=== PATIENT | female | born 1940 | race Caucasian/White ===

== ENCOUNTER 2016-08-25 15:04 | Emergency (ER) | payer MEDICARE ==
--- NOTE | ~2016-08-25 | EKG ---
PATIENT: LIZA RICHTER UNIT #: [id number] Ventricular Rate: 96 BPM Atrial Rate: 94 BPM P-R Interval: 150 ms QRS Duration: 92 ms Q-T Interval: 366 ms QTC Calculation(Bezet): 462 ms P [place]: 50 degrees Calculated R [place]: 27 degrees Calculated T [place]: 0 degrees Diagnosis Line: Normal sinus rhythm Diagnosis Line: Non Specific ST Changes- Abnormality in inferior Diagnosis Line: and lateral leads Diagnosis Line: Abnormal ECG Diagnosis Line: When compared with ECG of 16-AUG-2016 14:35, Diagnosis Line: Vent. rate has increased BY 39 BPM Diagnosis Line: Inferior leads Diagnosis Line: Nonspecific T wave abnormality, worse in Lateral Diagnosis Line: leads Diagnosis Line: Confirmed by REFUGIO VELEZ, ALICIA ([id number]) on Diagnosis Line: 09/06/2016 11:04:54 AM INTERPRETING MD: NIRANJAN
[~2016-08-25 15:04] MED LIST: AGGRENOX PO; ALBUTEROL AEROSOL IH; ALBUTEROL17 GM; ALBUTEROL17 GM INH; ALPRAZOLAM; ALPRAZOLAM PO; ANTIVERT PO; ASPIRIN ENTERI325 M1 PO; ASPIRIN325 M1 PO; CLOPIDOGREL75 MG PO; COUMADIN7.5 MG; DESYREL150 M1 PO; ECOTRIN325 MG PO; FLONASE16 GM; HYDROCODON-ACE1 EAC9 PO; IMODIUM2 MG PO; KEPPRA500 MG; LORTAB 7.5-5001 TAB PO; LORTAB 7.51 TAB PO; LORTAB PO; MELATONIN1 MG PO; MOBIC; MUCINEX DM ER1 EACH; NEXIUM PO; PERCOCET5/325 PO; PLAVIX PO; PLAVIX300 MG; PLAVIX300 MG PO; POTASSIUM99 M2 PO; RELAFEN500 MG PO; SINGULAIR PO; SKELAXIN PO; TOPROL XL PO; TOPROL XL50 MG PO; TRAZODONE HCL150 MG PO; TRAZODONE PO; TRICOR PO; TYLOX 5/500 CAP1 CAP PO; XANAX0.5 M1 PO; XANAX0.5 MG PO; XANAX1 MG PO; XANAX2 MG PO; ZETIA PO; ZITHROMAX PO; ZOCOR5 MG; ZOFRAN PO; ZOLOFT; ZOLOFT PO; ZOLOFT100 MG PO; ZYRTEC PO; ZYRTEC10 M2
[2016-08-25 16:03] LABS: URINE SOURCE CLEAN CATCH
[2016-08-25 16:06] LABS: URINE APPEARANCE CLEAR; URINE BILIRUBIN NEG (NEG); URINE BLOOD 2+ (NEG); URINE COLOR YELLOW; URINE GLUCOSE NEG (NORM); URINE KETONE NEG (NEG); URINE LEUKOCYTE ESTERASE TRACE (NEG); URINE NITRATE NEG (NEG); URINE PROTEIN NEG (NEG); URINE SPECIFIC GRAVITY >=1.030 (1.003-1.035); URINE UROBILINOGEN 0.2 MG/DL (NORM)
[2016-08-25 16:11] LABS: MICRO INDICATED? YES
[2016-08-25 16:13] LABS: URINE BACTERIA NEG (NEG); URINE SQUAMOUS EPITHELIAL CELL FEW /[HPF]
[2016-08-25 16:16] LABS: AMPHETAMINE NEG (NEG); BARBITURATES NEG (NEG); BENZODIAZEPINES NEG (NEG); COCAINE NEG (NEG); MARIJUANA NEG (NEG); OPIATES NEG (NEG); TRICYCLIC ANTIDEPRESSANTS NEG (NEG); U METHADONE NEG (NEG)
[2016-08-25 16:48] LABS: BASOPHIL% 0.2 % (0-2.5); EOSINOPHIL% 0.2 % (0.0-7.0); HEMATOCRIT 39.7 % (35.0-45.0); LYMPHOCYTE# 0.3 X10e3 (1.0-3.5); LYMPHOCYTE% 4.7 % (17.0-45.0); MEAN CELL VOLUME 86.1 FL (83-96); MEAN CORPUSCULAR HEMOGLOBIN 28.3 PG (28-34); MEAN CORPUSCULAR HGB CONC 32.8 g/dL (30-36); MONOCYTE# 0.1 X10e3 (0-1.0); MONOCYTE% 2.3 % (3.0-12.0); NEUTROPHIL% 92.6 % (40-75); PLATELET COUNT 227 X10e3 (140-420); RED BLOOD COUNT 4.62 X10e (3.90-5.30); RED CELL DISTRIBUTION WIDTH 14.7 % (11.0-15.5); WHITE BLOOD COUNT 6.4 X10e3 (4.0-10.5)
[2016-08-25 16:54] LABS: DIFF IND NO
[2016-08-25 17:14] LABS: BLOOD UREA NITROGEN 10 mg/dL (9-23); BUN/CREATININE RATIO 16.66; CALCIUM SERUM 8.8 mg/dL (8.4-10.2); CARBON DIOXIDE 24 mmol/L (22-31); CHLORIDE 98 mmol/L (100-111); CREATININE SERUM 0.6 mg/dL (0.6-1.4); GLOM FILT RATE Estimated ABOVE60 mL/min (>60); GLUCOSE FASTING 109 mg/dL (70-110); POTASSIUM 4.4 mmol/L (3.5-5.1); SODIUM 131 mmol/L (135-145)
== END 2016-08-25 18:22 | disposition home or self-care (01) ==
LOC: SED 15:04
PROVIDERS: Emergency Medicine
DX: R42 Dizziness and giddiness (principal); N39.0 Urinary tract infection, site not specified; Z86.73 Personal history of transient ischemic attack (TIA), and cerebral infarction without residual deficits; Z88.8 Allergy status to other drugs, medicaments and biological substances
CPT/HCPCS: 36415; 80048; 80307; 81003; 82947; 85025; 93005; 96372; 99284; J1885

== ENCOUNTER 2016-12-08 12:21 | Observation (INO) | payer MEDICARE ==
--- NOTE | ~2016-12-08 | MR134 ---
[facility] A Service of [facility] RADIOLOGY TEXT RESULTS PATIENT: LIZA RICHTER LOCATION: [facility] 317-01 : 41 UNIT #: [id number] AGE: [address]: Julio Delacruz MD SEX: F ORDER DR: [id number] [facility] [address] [place], [place] [address] [id number] I MR#: [id number] Acc #: [id number] NAME: LIZA RICHTER. : 1940 SEX: F STUDY DATE/TIME: 12/08/2016 17:04 UNIT: [address] ROOM: [employer] STUDY DESCRIPTION: MR MRA Neck Wo Contrast Attending Physician: Isabel Harrell M.D. Ordering Physician: Roge Zuñiga M.D. Primary Care Physician: Khari Whitten M.D. MRI CENTER REPORT This report is preliminary unless electronic signature is present. EXAM MRA neck 12/08 INDICATIONS Vertigo and nausea for the last 4 days. Syncopal episode as well. TECHNIQUE 2-D and 3-D odmu-zx-zwaewj imaging was obtained through the neck without contrast. MIP reconstructions of the arterial system were obtained. No comparison. FINDINGS Exam is motion degraded. The left vertebral artery is dominant, but both are patent. Allowing for extensive motion, no significant stenosis is seen within the vertebral arteries or the common carotid or internal carotid arteries on either side of the neck. IMPRESSION Motion degraded exam. No convincing evidence of significant carotid vertebral stenosis within the neck. The left vertebral is dominant but both are patent. Dictated by... Karthik Conway Jr., M.D. THIS IS AN ELECTRONICALLY VERIFIED REPORT Karthik Conway Jr., M.D. at 12/09/2016 10:04 AM JESSICA/andreina TD: 12/09/2016 08:20 JOB #: [id number] [facility] A Service [facility] RADIOLOGY TEXT RESULTS PATIENT: LIZA RICHTER LOCATION: [facility] 317-01 : 41 UNIT #: [id number] AGE: [address]: Julio Delacruz MD SEX: F ORDER DR: MRI CENTER REPORT Page 1 of 1 COPY
--- NOTE | ~2016-12-08 | MR122 ---
[facility] A Service of [facility] RADIOLOGY TEXT RESULTS PATIENT: LIZA RICHTER LOCATION: [facility] 317-01 : 41 UNIT #: [id number] AGE: [address]: Julio Delacruz MD SEX: F ORDER DR: [id number] [facility] [address] [place], [place] [address] [id number] I MR#: [id number] Acc #: [id number] NAME: LIZA RICHTER : 1940 SEX: F STUDY DATE/TIME: 12/08/2016 17:04 UNIT: [address] ROOM: [facility] STUDY DESCRIPTION: MR MRA Head Wo Contrast Attending Physician: Isabel Harrell M.D. Ordering Physician: Roge Zuñiga M.D. Primary Care Physician: Khari Whitten M.D. MRI CENTER REPORT This report is preliminary unless electronic signature is present. EXAM Intracranial MR angiogram HISTORY Dizziness with syncope and nausea beginning 12/05/2016 TECHNIQUE MR angiographic imaging was performed from the skull base to the [place] of [place] FINDINGS Posterior circulation: The distal left vertebral is more dominant than the right. There is diffuse atherosclerotic narrowing of the right vertebral artery with a maximum stenosis of approximately 75% to 80% 1.5 cm below the basilar artery. The basilar artery itself is widely patent. The right posterior cerebral artery is nonvisualized and presumably occluded. There is severe multisegment disease in the proximal posterior cerebral artery on the left. Maximum stenosis in the left P1 segment is greater than 75%. Right carotid circulation: The distal right internal carotid up through the siphon is widely patent through the M1, A1 segments. In the middle cerebral artery distribution there is moderate small vessel disease diffusely. No major branch vessel occlusion is seen. In the anterior circulation there is severe disease of the right anterior cerebral artery in the A2 segment. Both anterior cerebral arteries fill from the right. The left anterior cerebral artery shows a severe focal stenosis near the genu of the corpus callosum. Left carotid circulation: There is a generalized narrowing presumably from atherosclerotic disease involving the distal left internal carotid STS[facility] A Service of [facility] & [facility] RADIOLOGY TEXT RESULTS PATIENT: LIZA RICHTER LOCATION: [facility] 317-01 : 41 UNIT #: [id number] AGE: [address]: Julio Delacruz MD SEX: F ORDER DR: artery beginning at the afferent limb of the carotid siphon extending through the siphon. Maximum stenosis is in the range of 60% to 70%. The A1 segment is either hypoplastic, congenitally absent or chronically occluded. The M1 segment on the left shows severe atherosclerotic disease with multiple severe stenoses of greater than 75% to 80%. There appears to be occlusion of most of the branches at the left MCA trifurcation with probable collateral filling. IMPRESSION 1. In the posterior circulation there is a severe stenosis of the distal right vertebral with the left vertebral being dominant. 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 2. In the carotid circulation on the right side there is wide patency of the A1 segment with both anterior cerebral arteries filling from the right. There is severe disease in both anterior cerebral arteries as described above and moderate diffuse disease of the middle cerebral artery. 2. In the left carotid circulation there is severe disease up through the siphon and into the M1 segment all the way to the middle cerebral artery trifurcation where multiple Sylvian fissure branch vessels are occluded. The A1 segment on the left is either occluded, hypoplastic or congenitally absent. Dictated by... Karthik Fields M.D. THIS IS AN ELECTRONICALLY VERIFIED REPORT Karthik Fields M.D. at 12/09/2016 4:09 PM FALGUNI/andreina TD: 12/09/2016 07:40 JOB #: [id number] MRI CENTER REPORT Page 1 of 1 COPY
--- NOTE | ~2016-12-08 | CT17 ---
[facility] A Service of [facility] & [facility] RADIOLOGY TEXT RESULTS PATIENT: LIZA RICHTER LOCATION: [facility] 317- : 41 UNIT #: [id number] AGE: [address]: Julio Delacruz MD SEX: F ORDER DR: [id number] [facility] [address] [place], [place] [address] [id number] I MR#: [id number] Acc #: [id number] NAME: LIZA RICHTER. : 1940 SEX: F STUDY DATE/TIME: 12/09/2016 19:18 UNIT: [address] ROOM: [facility] STUDY DESCRIPTION: CT Angio Head Attending Physician: Julio Delacruz M.D. Ordering Physician: Julio Delacruz M.D. Primary Care Physician: Khari Whitten M.D. MEDICAL IMAGING REPORT This report is preliminary unless electronic signature is present EXAM CT angiogram of the head and neck with contrast, dated 12/09/16. COMPARISON MR angiogram head and neck dated 12/08/16. HISTORY Dizziness, nausea, vomiting since 12/05/16. Syncope. TECHNIQUE This CT exam was performed with one or more of the following radiation dose reduction techniques: automatic exposure control, adjustment of mA and/or kV according to patient size, and iterative reconstruction. FINDINGS CT angiogram of the head and neck was obtained with IV contrast in the axial plane. Curved reformats of the neck arteries were obtained. The [place] was reconstructed in all 3 planes along with tumbling MIP images. NECK: Aortic atherosclerotic vascular calcifications are present. Two-vessel aortic arch is seen with common origin of the left common carotid artery with the innominate artery. Atherosclerotic plaques are noted along the course of bilateral common carotid arteries. The left common carotid artery is slightly smaller when compared to the right along its course. Atherosclerotic plaques extend from bilateral distal common carotid arteries into the origins of the left external carotid artery and right internal carotid artery. There is about 40 to 50% focal short segmental stenosis of the right internal carotid artery bulb at its origin involving a tiny segment. It is based on NASCET criteria. No significant stenosis is seen. The left internal carotid artery does not demonstrate any measurable stenosis. There appears to be mild stenosis of the origins of bilateral external carotid arteries with atherosclerotic plaque, STS. [facility] A Service of [facility] & [facility] RADIOLOGY TEXT RESULTS PATIENT: LIZA RICHTER LOCATION: [facility] 317-01 : 41 UNIT #: [id number] AGE: [address]: Julio Delacruz MD SEX: F ORDER DR: particularly in the right. Bilateral vertebral arteries demonstrate expected course and flow. The left vertebral artery slightly dominant. No significant stenosis or dissection is seen. HEAD: The left internal carotid artery demonstrates a decrease in caliber of the distal cervical left ICA extending into the petrous intracranial segment. In a focal short segment at the junction of cervical and petrous portion at the skull base, there is about ruvervba-yv-qqikux stenosis. There is severe focal 2-3 mm short segment of stenosis in the left supraclinoid ICA, proximal to the carotid terminus. Mild narrowing is also seen in the petrous left ICA, extending distally to the supraclinoid portion. Scattered atherosclerotic plaques are noted with decreased caliber of the vessel. Atherosclerotic plaques are noted along the course of the right ICA, also with likely mild stenosis of the right cavernous and maybe portions of the adjacent right supraclinoid ICA. Small infundibula arise from the posterior aspect of bilateral supraclinoid ICA measuring about 2 mm in height and 2 mm at the neck. Its at the expected region of the origins of bilateral PCOMs. the PCOM itself are not well seen. A1 segment of the left anterior cerebral artery is not seen. It is very hypoplastic to aplastic. PCOM likely cross-fills from the right CUATE to the left A2. There is focal short segment of dgolettv-rl-rdkoqk stenosis of the M1 segment of the left MCA. There is no significant distal flow limitation. The right middle cerebral artery, right anterior cerebral artery are unremarkable. Basilar arteries within normal limits. There is irregularity of the left posterior cerebral artery involving its P1 and probably a short segment of the junction of P2 and P3. Tandem multiple short segments of lozbqsqg-kq-opmgdh stenosis are noted along the course of the left posterior cerebral artery involving P1-P3, with relatively normal-appearing P4 segment. No significant distal flow limitation is seen. The right posterior cerebral artery is not well seen particularly in the right P1 and P2 segments extending towards the presumed P3 segment. A small vessel cannot be completely excluded. There appears to be relatively prominent right P3 segment when compared with the left [employer]. It could also represent a vein in this region. There are no old studies available for comparison. Basilar artery is grossly unremarkable. Atherosclerotic plaques are noted in the mid V4 segment of the vertebral artery. The right vertebral artery is of smaller caliber and it has atherosclerotic plaques as it extends intracranially likely causing mild stenosis. The caliber of the right vertebral artery keeps decreasing as it extends towards the vertebrobasilar junction. It is more pronounced after the takeoff of the right PICA. No obvious aneurysm or AVM is seen. Dural venous sinuses do not demonstrate any complete occlusion to suggest acute thrombosis. EXTRAVASCULAR SOFT TISSUES: No hydrocephalus or midline shift. No enhancing solid parenchymal mass is seen. There is encephalomalacic change along the right posterior cerebral artery distribution in the posterior medial right occipital lobe and in the left inferior parietal cortex and adjacent subcortical white matter extending superiorly. It is STS. [facility] A Service of [facility] RADIOLOGY TEXT RESULTS PATIENT: LIZA RICHTER [id number] UNIT #: [id number] AGE: [address]: Julio Delacruz MD SEX: F ORDER DR: likely in the distribution of left middle cerebral artery. Refer to MRI brain obtained from the same day. IMPRESSION 1. Refer to MRA of head and neck from yesterday. Refer to the CT of head and neck from 08/11/12, which demonstrates similar findings. 2. There is severe focal 2-3 mm short segment of stenosis in the left supraclinoid ICA, proximal to the carotid terminus. 3. Tandem multiple short segments of hugjifzr-ei-darvej stenosis are noted along the course of the left posterior cerebral artery involving P1-P3, with relatively normal-appearing P4 segment. 4. There appears to be mild stenosis of the origins of bilateral external carotid arteries with atherosclerotic plaque, particularly in the right. 5. Bilateral infundibula are noted in supraclinoid ICA at the expected region of the origins of bilateral PCOMs. Dictated by... Alexus George M.D. THIS IS AN ELECTRONICALLY VERIFIED REPORT Alexus George M.D. at 12/15/2016 9:10 PM CPR/jt TD: 12/09/2016 23:05 JOB #: [id number] MEDICAL IMAGING REPORT Page 1 of 1 COPY
--- NOTE | ~2016-12-08 | EKG ---
PATIENT: LIZA RICHTER UNIT #: [id number] Ventricular Rate: 63 BPM Atrial Rate: 63 BPM P-R Interval: 148 ms QRS Duration: 96 ms Q-T Interval: 468 ms QTC Calculation(Bezet): 478 ms P [place]: 33 degrees Calculated R [place]: 23 degrees Calculated T [place]: 42 degrees Diagnosis Line: Normal sinus rhythm Diagnosis Line: Normal ECG Diagnosis Line: When compared with ECG of 25-AUG-2016 15:34, Diagnosis Line: Vent. rate has decreased BY 33 BPM Diagnosis Line: Nonspecific T wave abnormality no longer evident Diagnosis Line: in Inferior leads Diagnosis Line: Nonspecific T wave abnormality no longer evident Diagnosis Line: in Anterolateral leads Diagnosis Line: Confirmed by SANDEE TORRES MD ([id number]) on Diagnosis Line: 12/09/2016 9:07:24 PM INTERPRETING MD: LULY
--- NOTE | ~2016-12-08 | CT71 ---
[facility] A Service of [facility] & [facility] RADIOLOGY TEXT RESULTS PATIENT: LIZA RICHTER LOCATION: [facility] 317-01 : 41 UNIT #: [id number] AGE: [address]: Julio Delacruz MD SEX: F ORDER DR: [id number] [facility] [address] [place], [place] [address] [id number] E MR#: [id number] Acc #: [id number] NAME: LIZA RICHTER : 1940 SEX: F STUDY DATE/TIME: 12/08/2016 13:58 UNIT: RENA ROOM: STUDY DESCRIPTION: CT Head Wo Contrast Attending Physician: Roge Zuñiga M.D. Ordering Physician: Roge Zuñiga M.D. Primary Care Physician: Khari Whitten M.D. MEDICAL IMAGING REPORT This report is preliminary unless electronic signature is present EXAM CT head 12/08/2016 HISTORY Dizziness, nausea, vomiting since Thursday12/05/2016. TECHNIQUE CT head performed skull base through vertex without intravenous contrast. This CT exam was performed with one or more of the following radiation dose reduction techniques: automatic exposure control, adjustment of mA and/or kV according to patient size, and iterative reconstruction. COMPARISON STUDIES Comparison 08/16/2016 FINDINGS Brainstem unremarkable. Cerebellum shows no acute abnormality. Encephalomalacic change in the posteromedial right temporal lobe and occipital lobe consistent with remote vascular insult. No change. Encephalomalacic change posterior left parietal lobe consistent with prior vascular insult. No evidence of acute hemorrhage or acute cortical ischemia. The midline structures are nondisplaced. No acute basal ganglia abnormality. Periventricular and deep white matter tract probable sequelae of chronic microvascular ischemia. Ventricles, cisterns, sulci show mild to moderate generalized enlargement consistent with generalized atrophy. No change. Extensive cavernous carotid and distal vertebral arterial calcifications. The intraorbital soft tissues are unremarkable. No acute sinus disease. Mucosal thickening and chronic periosteal thickening in the right maxillary sinus. There is mucosal thickening in the left sphenoid sinus unchanged. IMPRESSION [facility] A Service of [facility] & [facility] RADIOLOGY TEXT RESULTS PATIENT: LIZA RICHTER [id number] UNIT #: [id number] AGE: [address]: Julio Delacruz MD SEX: F ORDER DR: 1. No acute abnormality is seen in the brain. No change in appearance compared to July 2016. 2. Chronic changes include: Chronic encephalomalacic change posteromedial right temporal occipital region and posterior left parietal lobe consistent with remote vascular insults, mild to moderate generalized atrophy, periventricular and deep white matter tract probable sequelae of chronic microvascular ischemia, extensive cavernous carotid and distal vertebral arterial calcification. 3. Chronic mucosal thickening left sphenoid sinus. Chronic mucosal thickening right maxillary sinus with associated chronic appearing periosteal reaction. There is no indication of acute sinus disease. Dictated by... Lam Clayton M.D. THIS IS AN ELECTRONICALLY VERIFIED REPORT Lam Clayton M.D. at 12/09/2016 5:16 PM Ben TD: 12/08/2016 16:24 JOB #: [id number] MEDICAL IMAGING REPORT Page 1 of 1 COPY
--- NOTE | ~2016-12-08 | CO ---
Unit #: [id number] #: [id number] Patient: LIZA RICHTER [id number] [facility] [address]. [place], [place] [address] [id number] I MR#: [id number] NAME: LIZA RICHTER. ROOM: 317 Age: 76 Sex: F Admission Date: 12/08/2016 : 1940 Attending Physician: Julio Delacruz M.D. Primary Care Physician: Khari Whitten M.D. CONSULTATION REPORT CONSULTING PHYSICIAN Dr. Jonah Harrell REASON FOR CONSULT CVA. PATIENT IDENTIFICATION This is a 76-year-old female evaluated in room 317 at [facility]. SOURCE OF INFORMATION Obtained from the patient as well as medical record. HISTORY OF PRESENT ILLNESS This is a 76-year-old female with a past medical history of CVA, CAD, hypertension, hyperlipidemia, who presents to [facility] with complaints of dizziness and nausea for a few days as per the medical record. She tells me symptoms started about two days prior to seeking treatment. She reports that she has chronic intermittent bouts of vertigo but she states that this time, a couple of days before admission, she noted an acute episode of nausea. She states that she has also been feeling fatigued and that she decided to seek further evaluation for treatment. She states that something felt different this time and, thus, she was admitted for further evaluation. She had a CT of the head without contrast on 12/08/16 in the ER that showed no evidence of acute abnormality in the brain with no change in appearance from July 2016. Please see full dictated reported below. She underwent an MRI of the brain also on 12/08/16 that shows a small infarct in the right posteromedial cerebellar hemisphere, likely subacute, with some mild associated vasogenic edema with no evidence of hemorrhage or mass effect. Also of note, there are old right occipital and left parietal lobe infarcts. She underwent MR angiogram of the head and neck as well on 12/08/16 and you can see those dictations below. She has significant intracranial atherosclerotic disease which is known. She was seen by neurology in 2012 for workup of stroke and had a vascular workup at that time. The patient states that she states she saw Dr. Rinku Canseco for abnormal CTA; but was treated medically and has remained on ASA and Plavix. She had a CAITY done as well that showed aortic atheromatony disease. PAST MEDICAL HISTORY 1. CVA- see above and also records in [facility] from 2012. 2. Hypertension 3. Coronary Artery Disease 4. HLD Unit #: [id number] #: [id number] Patient: LIZA RICHTER 5. GERD 6. Depression 7. Anxiety ALLERGIES Pyrazoles, pravastin (upset stomach), Baclofen, Gemfibrozil. FAMILY HISTORY CA SOCIAL HISTORY Non-smoker, denies illicit drug use REVIEW OF SYSTEM: As above PHYSICAL EXAMINATION NEUROLOGICAL EXAM: The patient is awake, alert and oriented to person, place and time as well as events. No right/left confusion, no finger agnosia. No aphasia or dysarthria or apraxia. CRANIAL NERVE EXAM: She demonstrates what appears to be left visual field cut which the patient states is chronic. Eyes are conjugate without ptosis or nystagmus. Extraocular movements are intact. Sensation on the face and scalp is intact. Strength of muscle of facial expression is intact. Hearing is intact to finger rub and conversation. Tongue is midline, uvular is midline. Palate elevation is normal. Head turning and shoulder shrug was unremarkable. Neck is supple. MOTOR EXAM: She demonstrates normal bulk and tone. Strength is equal, 5 out of 5 in the extremities. SENSORY EXAM: Intact. GAIT AND ROMBERG: Deferred. REFLEXES: Unable to elicit. Toes are equivocal. COORDINATION: She does have some mild left upper and left lower extremity ataxia. No truncal ataxia. DIAGNOSTIC STUDIES IMAGING: CT of the head without contrast on 12/08/16. Impression - per radiology report, no acute abnormalities seen in the brain. No change in appearance compared to July 2016. Chronic changes include chronic encephalomalacia change posteromedial right temporal occipital region and posterior left parietal lobe consistent with remove vascular insults. Mild to moderate generalized atrophy, periventricular and deep white matter tract probable sequelae of chronic microvascular ischemia, extensive cavernous carotid and distal vertebral arterial calcification. Chronic mucosal thickening of left sphenoid sinus. Chronic mucosal thickening of the right maxillary sinus with associated chronic appearing periosteal reaction. There is no indication of acute sinus disease. MRI of the brain as discussed above. MRI of the head and neck 6/12/17 - in the posterior circulation, there is a severe stenosis of the distal right vertebral artery with the left vertebral being dominant. There is severe bilateral posterior cerebral artery disease worse, on the right than on the left, with a nonvisualization of most of the right posterior cerebral artery. In the carotid circulation on the right, there is wide patency of the A1 segment with both anterior cerebral arteries filling from the right. There is severe disease in both anterior cerebral arteries as described in the full Unit #: [id number] #: [id number] Patient: LIZA RICHTER body of the report and moderate diffuse disease of the middle cerebral artery. In the left carotid circulation, there is severe disease up through the siphon and into the M1 segment all the way into the middle cerebral artery trifurcation where multiple sylvian fissure branch vessels are occluded. The A1 segment on the left is either occluded, hypoplastic or congenitally absent. MRA of the neck done on 12/08/16. Impression per radiology report - motion degraded exam. No convincing evidence of significant carotid vertebral stenosis within the neck. The left vertebral artery is dominant but both are patent. CARDIOVASCULAR: EKG - normal sinus rhythm on 12/09/16. LABORATORY: CRP 0.92, TSH 2.77. BMP unremarkable. CBC unremarkable other than a hemoglobin of 11.6. Troponin on arrival less than 0.05. CBC on arrival negative. IMPRESSION 1. Subacute right cerebellar ischemic cerebrovascular accident with nausea and vertigo: Patient clinically better but she does have some left upper extremity and left lower extremity ataxia, mild. 2. History of ischemic stroke: Please see above for the history. 3. Chronic left visual field cut from prior right occipital lobe stroke. 4. History of intracranial atherosclerosis, please see above. 5. Coronary artery disease. 6. Possible urinary tract infection, culture pending. 7. Hyperlipidemia: Will start the patient on Lipitor 40. She has a documented intolerance to pravastatin which causes upset stomach. Will trial the patient on Lipitor. She denies a history of muscle weakness, pain or rhabdomyolysis with statin. PLAN Will request a CT angiogram to compare to MR angiogram imaging as she has pretty significant disease. Stroke could possibly be atherosclerotic in nature secondary to atherosclerosis in the posterior circulation. However, we must consider cardioembolic source given past CAITY findings. Will request a CAITY in the morning for further evaluation. Will check platelet function analysis for aspirin and Plavix. Further recommendations to be made pending workup and further clinical course. The case discussed with Dr. Garham. He agrees with above. We will follow along with you. We thank you very much for allowing us to assist in the care of this patient. Information had to be added into this dictation after patient discharge due to problems with the dictation system an dlost sections of this dictation. Thus, details of the HPI may have been lost. ADDITIONAL JOB #: [id number] Unit #: [id number] #: [id number] Patient: LIZA RICHTER Dictated by... Dayana Junior A.P.R.N. for Khoa Obregon/hi TD: 12/11/2016 05:50 JOB #: [id number] CONSULTATION REPORT Page 1 of 1 X Dayana Junior APRN X CONSULTATION REPORT
--- NOTE | ~2016-12-08 | MR18 ---
[facility] A Service of [facility] RADIOLOGY TEXT RESULTS PATIENT: LIZA RICHTER LOCATION: [facility] 317-01 : 41 UNIT #: [id number] AGE: [address]: Julio Delacruz MD SEX: F ORDER DR: [id number] [facility] [address] [place], [place] [address] [id number] I MR#: [id number] Acc #: [id number] NAME: LIZA RICHTER. : 1940 SEX: F STUDY DATE/TIME: 12/08/2016 17:04 UNIT: [address] ROOM: [facility] STUDY DESCRIPTION: MR Brain Wo Contrast Attending Physician: Isabel Harrell M.D. Ordering Physician: Roge Zuñiga M.D. Primary Care Physician: Khari Whitten M.D. MRI CENTER REPORT This report is preliminary unless electronic signature is present. EXAM MRI brain 12/08 INDICATIONS Vertigo, no nausea for 4 days. Syncopal episode today. TECHNIQUE Multisequence multiplanar imaging was formed through the brain without contrast in a high field strength magnet. Comparison made with 08/10/2012. FINDINGS Diffusion imaging reveals a small probably subacute infarct in the right posteromedial cerebellar hemisphere. There is some associated vasogenic edema, but no mass effect or hemorrhage. Diffusion imaging is otherwise negative. There is generalized atrophy. Ventricular size and configuration are within normal limits. Advanced chronic small vessel ischemic changes are present in the white matter. There is an old left parietal infarct with encephalomalacia and gliosis. There is also an old right occipital infarct with encephalomalacia. No masses are identified. Craniovertebral junction is within normal limits. IMPRESSION 1. There is a small infarct in the right posteromedial cerebellar hemisphere which is probably subacute as there is some mild associated vasogenic edema. No evidence of associated hemorrhage or mass effect. 2. Generalized atrophy with advanced chronic small vessel ischemic disease in the white matter. 3. Old right occipital and left parietal infarcts. Dictated by... [facility] A Service of [facility] RADIOLOGY TEXT RESULTS PATIENT: LIZA RICHTER LOCATION: [facility] 317-01 : 41 UNIT #: [id number] AGE: [address]: Julio Delacruz MD SEX: F ORDER DR: Karthik Conway Jr., M.D. THIS IS AN ELECTRONICALLY VERIFIED REPORT Karthik Conway Jr., M.D. at 12/09/2016 10:04 AM JESSICA/andreina TD: 12/09/2016 07:53 JOB #: [id number] MRI CENTER REPORT Page 1 of 1 COPY
--- NOTE | ~2016-12-08 | CO ---
Unit #: [id number] #: [id number] Patient: LIZA RICHTER [id number] [address] [place], [place] [address] [id number] I MR#: [id number] NAME: LIZA RICHTER. ROOM: 317 Age: 76 Sex: F Admission Date: 12/08/2016 : 1940 Attending Physician: Julio Delacruz M.D. Primary Care Physician: Khari Whitten M.D. CONSULTATION REPORT This is in regard to her hospital stay from 12/08/2016 to 12/10/2016. This is a followup regarding phone call in setting up her Stroke Clinic appointment. I spoke with Cailin at [facility] and she is a coordinator for the clinic. I faxed over the patient's information and she states that she will get the appointment set up and contact the patient. I did contact the patient again today and left a message with her to call me as I am unable to reach her today to let her know that [facility] would be calling her with the appointment time and also to follow up regarding her PT/INR as I have not been able to reach her in the last two days. Dictated by... Elsa SoteloRCheryl for Khoa Obregon/marlen TD: 12/17/2016 16:15 JOB #: [id number] CONSULTATION REPORT Page 1 of 1 X Dayana Junior APRN X CONSULTATION REPORT
--- NOTE | ~2016-12-08 | CR72 ---
[facility] A Service of [facility] RADIOLOGY TEXT RESULTS PATIENT: LIZA RICHTER LOCATION: [facility] : 41 UNIT #: [id number] AGE: [address]: Roge Saavedra MD SEX: F ORDER DR: [id number] [facility] [address] [place], [place] [address] [id number] E MR#: [id number] Acc #: [id number] NAME: LIZA RICHTER : 1940 SEX: F STUDY DATE/TIME: 12/08/2016 1312 UNIT: [facility] ROOM: STUDY DESCRIPTION: CR Chest Single View Portable Attending Physician: Roge Saavedra M.D. Ordering Physician: Roge Saavedra M.D. Primary Care Physician: Khari Whitten M.D. MEDICAL IMAGING REPORT This report is preliminary unless electronic signature is present EXAM Chest portable 12/08/2016 1312 hours HISTORY 76-year-old woman complaining of dizziness, shortness of air with nausea for 4 days. COMPARISON 08/16/2016 FINDINGS Portable upright chest demonstrates normal heart size with stable atherosclerotic change of the aorta which appears normal in contour. The pulmonary vascularity is normal. The lungs are clear and there are no effusions. No free air seen in the abdomen. IMPRESSION No acute cardiopulmonary findings. No appreciable change from 08/16/2016. Dictated by... Emily Duran M.D. THIS IS AN ELECTRONICALLY VERIFIED REPORT Emily Duran M.D. at 12/08/2016 7:31 PM Arjun TD: 12/08/2016 15:08 JOB #: [id number] MEDICAL IMAGING REPORT Page 1 of 1 COPY
--- NOTE | ~2016-12-08 | CO ---
Unit #: [id number] #: [id number] Patient: ALICIA RICHTER [id number] [facility] [address] [facility] [place], [place] [address] [id number] I MR#: [id number] NAME: ALICIA RICHTER. ROOM: 317 Age: 76 Sex: F Admission Date: 12/08/2016 : 1940 Attending Physician: Julio Delacruz M.D. Primary Care Physician: Khari Whitten M.D. CONSULTATION REPORT A followup phone conversation with regard to Alicia Richter's hospital stay from 12/08/2016 to 12/10/2016. HISTORY OF PRESENT ILLNESS We saw this patient as part of a stroke evaluation at [facility] from 12/08/2016 to 12/10/2016. She was discharged on warfarin as part of her workup and was instructed to follow up with her PCP for PT/INR as an outpatient on 12/12, two days after her discharge. She had refused Home Health according to the resident caregiver; however, her home health nurse did contact her to follow up and see how she was doing. The patient told the nurse that she could not get a hold of her primary care provider and had not had a PT/INR done. This was on 12/15/2016. I was notified by her resident caregiver and the patient had some questions about medication and that they were sending [facility] nurse out to check on the patient and to address the PT/INR. I called the patient to speak with her about her medication question. She had asked whether she should be on Plavix and warfarin both. I checked records. She was instructed to be on aspirin and warfarin and to stop Plavix. This was consistent with discharge summary. Neurology recommendations and med rec in the med rec form. However, the nursing discharge instructions had warfarin and Plavix listed and not aspirin. This was addressed with the patient and I did instruct her she needed to take aspirin 81 mg p.o. daily and her warfarin, also instructed her that she needed to get a PT/INR done with her PCP as soon as possible. She states that she was addressing that with home health and her primary care provider. She also states that she did not get set up with the [facility] appointment and the orders are written by Neurology for that to be done prior to discharge. I made an attempt yesterday to call [facility] to get that appointment set up personally and I left a message with Amita [phone], and I am awaiting return phone call at this time. For that, I attempted to call Ms. Richter back today to update her on the stroke clinic appointment and to follow up on the progress of her PT/INR and whether she reached her primary care provider and she does not answer her telephone. I make attempts to follow up on her Neurology Outpatient Stroke Clinic appointment tomorrow as well as attempt to reach the patient. I attempted to follow up with a phone call yesterday afternoon as well. I did speak with her earlier in the day, but my two subsequent followup phone calls have been unsuccessful including yesterday afternoon and today. Dictated by... Dayana Junior A.P.R.N. Unit #: [id number] #: [id number] Patient: ALICIA RICHTER ALEJANDRINA/marlen TD: 12/17/2016 04:50 JOB #: [id number] CONSULTATION REPORT Page 1 of 1 X Dayana Junior APRN X CONSULTATION REPORT
--- NOTE | ~2016-12-08 | CT23 ---
[facility] A Service of [facility] & [facility] RADIOLOGY TEXT RESULTS PATIENT: LIZA RICHTER LOCATION: [facility] 317- : 41 UNIT #: [id number] AGE: [address]: Julio Delacruz MD SEX: F ORDER DR: [id number] [facility] [address] [place], [place] [address] [id number] I MR#: [id number] Acc #: [id number] NAME: LIZA RICHTER : 1940 SEX: F STUDY DATE/TIME: 12/09/2016 19:18 UNIT: [address] ROOM: [facility] STUDY DESCRIPTION: CT Angio Neck Attending Physician: Julio Delacruz M.D. Ordering Physician: Julio Delacruz M.D. Primary Care Physician: Khari Whitten M.D. MEDICAL IMAGING REPORT This report is preliminary unless electronic signature is present EXAM CT angiogram of the neck with contrast, dated 12/09/16. COMPARISON MR angiogram head and neck dated 12/08/16. HISTORY Dizziness, nausea, vomiting since 12/05/16. Syncope. TECHNIQUE This CT exam was performed with one or more of the following radiation dose reduction techniques: automatic exposure control, adjustment of mA and/or kV according to patient size, and iterative reconstruction. FINDINGS Please see CTA head neck for results. Dictated by... Alexus George M.D. THIS IS AN ELECTRONICALLY VERIFIED REPORT Alexus George M.D. at 12/11/2016 6:05 PM CPR/jt TD: 12/09/2016 23:21 JOB #: [id number] MEDICAL IMAGING REPORT Page 1 of 1 COPY
--- NOTE | ~2016-12-08 | DS ---
Unit #: [id number] #: [id number] Patient: LIZA RICHTER [id number] [address] [place], [place] [address] [id number] I MR#: [id number] NAME: LIZA RICHTER. ROOM: [facility] Age: 76 Sex: F Admission Date: 12/08/2016 : 1940 Discharge Date: 12/10/2016 Attending Physician: Julio Delacruz M.D. Primary Care Physician: Khari Whitten M.D. DISCHARGE SUMMARY DIAGNOSIS ON ADMISSION Dizziness and acute UTI. DIAGNOSES ON DISCHARGE 1. Acute right cerebellar cerebrovascular accident. 2. Hypertension. 3. History of cerebrovascular accident. 4. Coronary artery disease. 5. Hypertension. 6. Gastroesophageal reflux disease. 7. Depression. 8. Anxiety disorder. 9. Extensive cerebrovascular disease. CONSULTATION Dr. Graham in Neurology consultation. DIAGNOSTIC STUDIES LABORATORY: Creatinine is 0.7, sodium 141, and potassium is 4.1. AST and ALT are within normal limits. Total cholesterol is 277, triglycerides 281, LDL 167, and HDL is 54. TSH is 2.77. WBC 5.4, hemoglobin 11.6, and platelet count is 248,000. Urine culture did not reveal any growth, but the patient had 10-25 WBCs. Hemoglobin A1c was 5.2. IMAGIN. Patient had an MRI of the brain done which revealed a small infarct in the right posteromedial cerebellar hemisphere which is probably subacute. 2. Chest x-ray did not reveal any acute finding. CARDIOLOGY: Patient had a transesophageal echocardiogram done which did not reveal any PFO or clots. There was no vegetation. Ejection fraction was 50% to 55%. There was mild to moderate mitral regurgitation and mild aortic regurgitation and tricuspid regurgitation. Patient had severe calcified diffuse atherosclerotic plaques with small calcified atheroma present. HOSPITAL COURSE A 76-year-old patient was admitted to [facility] with dizziness. Details are as per admission History and Physical. Patient's MRI was positive for acute CVA. Patient underwent a CAITY which did not reveal any acute finding. Patient's platelet function Plavix test revealed that Plavix is not effective. Therefore, Dr. Graham has recommended to start patient on Coumadin and aspirin and Lipitor 80 mg. Unit #: [id number] #: [id number] Patient: LIZA RICHTER Patient is agreeable for that as she has a history of previous stroke and wants to be treated aggressively. RECOMMENDATIONS ON DISCHARGE 1. Condition is stable. 2. Activity as tolerated. 3. We will arrange home health regarding home safety assessment and for nursing to do INR on December 12 and call patient's primary care physician with the results for Coumadin dosing. DISCHARGE MEDICATIONS 1. Lipitor 80 mg p.o. at bedtime. 2. Meclizine 25 mg p.o. q.8 hours p.r.n. 3. Trazodone 150 mg p.o. every evening. 4. Zoloft 100 mg p.o. daily. 5. Tylenol 650 mg p.o. q.6 hours p.r.n. 6. Enteric-coated aspirin 81 mg p.o. daily. 7. Keflex 500 mg p.o. b.i.d. for 5 days. 8. Coumadin 5 mg p.o. daily. FOLLOWUP 1. Patient is advised to follow with primary care physician in one week and have a CBC and BMP done. 2. Patient is advised to follow up with [facility] stroke team on an outpatient basis. The plan was discussed in detail with patient who showed complete understanding. She also showed understanding to the dietary restrictions with Coumadin. Patient says she had a stroke, and she wants to live her life and will comply with instructions. Dictated by... Khoa Jordan/jamel TD: 12/10/2016 15:13 JOB #: [id number] CC: Kat Graham M.D. [facility], [facility]. [facility] DISCHARGE SUMMARY Page 1 of 1 X Julio Delacruz MD X DISCHARGE SUMMARY
--- NOTE | ~2016-12-08 | HP ---
Unit #: [id number] #: [id number] Patient: LIZA RICHTER [id number] [address] [address] [id number] MR#: [id number] NAME: LIZA RICHTER ROOM: Age: 76 Sex: F Admission Date: 12/08/2016 : 1940 Attending Physician: Roge Zuñiga M.D. Primary Care Physician: Khari Whitten M.D. HISTORY AND PHYSICAL CHIEF COMPLAINT Vertigo, dizzy, nausea for four days. HISTORY OF PRESENT ILLNESS The patient is a 76-year-old female with history of coronary artery disease, hyperlipidemia, previous history of a stroke in the right occipital area, who presented to the emergency room with vertigo and dizzy. The patient also complains of the nausea for four days. The dizziness is worse with movement. The patient has been seen in multiple times in the ER for similar reasons. The patient stated the patient has to be careful when she moves around so to avoid a fall. Denies any visual changes. Denies any fever, chills, short of breath, positive nausea but no vomiting. Patient had a CT of the head that showed no acute intracranial findings. History of an insult of the right occipitoparietal area with some encephalomalacia. The patient is being admitted for the above reasons. PAST MEDICAL HISTORY 1. History of rib fractures and pneumothorax. 2. History of CVA. 3. Hypertension. 4. Coronary artery disease. 5. Hyperlipidemia. 6. Gastroesophageal reflux disease. 7. Depression and anxiety. PAST SURGICAL HISTORY 1. Cataracts. 2. Left knee replacement. 3. Total abdominal hysterectomy. 4. Benign breast tumor removal from the right. 5. Partial colectomy. 6. Repair of the left clavicle fracture. HOME MEDICATIONS 1. Aspirin. 2. Plavix. 3. Trazodone. 4. Zoloft. 5. Melatonin. ALLERGIES 1. Pyrazoles. 2. Statins. Unit #: [id number] #: [id number] Patient: LIZA RICHTER 3. Baclofen. 4. Gemfibrozil. 5. Pravastatin. SOCIAL HISTORY She lives at home with her . Does not smoke or consume alcohol. FAMILY HISTORY Positive for cancers. REVIEW OF SYSTEMS A 14-point review of systems performed and only pertinent positive findings are described above, remaining are negative. PHYSICAL EXAMINATION VITAL SIGNS: Temperature 97.8, pulse 64, respiratory rate 18, blood pressure 153/56. GENERAL: Patient is lying on the bed not in acute distress. HEENT: Atraumatic, normocephalic. Pupils equal, round, and reactive to light and accommodation. Dry mucous membrane. NECK: Supple. LUNGS: Clear to auscultation. HEART: Regular rate and rhythm. ABDOMEN: Soft, positive bowel sounds. EXTREMITIES: No cyanosis, no clubbing. NEUROLOGIC: No gross focal motor deficit. PSYCHIATRIC: Affect and mood are appropriate. DIAGNOSTIC STUDIES LABORATORY: WBC 5.9, hemoglobin 12.3, hematocrit 37.5, platelets 270. Troponin less than 0.05. Sodium 139, potassium 4.3, chloride 102, bicarb 29, glucose 111, BUN 13, creatinine 0.7, calcium 9.9, glucose 124. UA shows 2+ leukocyte esterase, 10-25 urine wbc's. IMAGING: Chest x-ray shows no acute cardiopulmonary findings. No appreciable change from the 08/16/2016. CT of the head shows no acute intracranial findings and the encephalomalacia with the right parietooccipital insult. ASSESSMENT AND PLAN 1. Dizziness. 2. Probable urinary tract infection. 3. Anxiety and depression. PLAN 1. Admit patient as observation. 2. Patient is awaiting MRI of the brain without contrast from the ER. 3. Will continue to follow the urine cultures. 4. Continue with the meclizine. 5. Will have the neurology consult if the MRI is positive for any further abnormal MRI. 6. Further recommendations will follow. Unit #: [id number] #: [id number] Patient: LIZA RICHTER Dictated by Khoa Jeffers TD: 12/08/2016 15:41 JOB #: [id number] HISTORY AND PHYSICAL Page 1 of 1 X LACHO VENEGAS MD X HISTORY AND PHYSICAL
[2016-12-08 13:03] LABS: BASOPHIL# 0.1 X10e3 (0-0.3); EOSINOPHIL# 0.1 X10e3 (0-0.7); EOSINOPHIL% 1.6 % (0.0-7.0); HEMATOCRIT 37.5 % (35.0-45.0); HEMOGLOBIN 12.3 gm/dL (12.0-16.0); LYMPHOCYTE# 1.8 X10e3 (1.0-3.5); MEAN CELL VOLUME 86.2 FL (83-96); MEAN CORPUSCULAR HEMOGLOBIN 28.3 PG (28-34); MEAN CORPUSCULAR HGB CONC 32.9 g/dL (30-36); MEAN PLATELET VOLUME 6.6 FL (6.5-11.5); MONOCYTE# 0.4 X10e3 (0-1.0); NEUTROPHIL# 3.5 X10e3 (1.5-7.1); NEUTROPHIL% 60.4 % (40-75); PLATELET COUNT 270 X10e3 (140-420); RED BLOOD COUNT 4.35 X10e (3.90-5.30); RED CELL DISTRIBUTION WIDTH 14.3 % (11.0-15.5); WHITE BLOOD COUNT 5.9 X10e3 (4.0-10.5)
[2016-12-08 13:18] LABS: DIFF IND NO
[2016-12-08 13:32] LABS: ALBUMIN SERUM 4.1 g/dL (3.5-5.0); BILIRUBIN, DIRECT 0.1 mg/dL (0.0-0.2); BILIRUBIN,INDIRECT 0.7 mg/dL (0.0-0.9); BILIRUBIN,TOTAL 0.8 mg/dL (0.2-2.0); BUN/CREATININE RATIO 18.57; CALCIUM SERUM 9.9 mg/dL (8.4-10.2); CREATININE SERUM 0.7 mg/dL (0.6-1.4); GLOM FILT RATE Estimated 84.8 mL/min (>60); POTASSIUM 4.3 mmol/L (3.5-5.1); PROTEIN TOTAL SERUM 7.5 g/dL (6.0-8.3)
[2016-12-08 13:32] LABS: POC - CKMB <1.0 ng/mL (0.0-7.9); POC - TROPONIN <0.05 ng/mL (<=0.05)
[2016-12-08 14:07] LABS: URINE SOURCE CLEAN CATCH
[2016-12-08 14:11] LABS: URINE APPEARANCE CLEAR; URINE BILIRUBIN NEG (NEG); URINE BLOOD TRACE (NEG); URINE COLOR YELLOW; URINE GLUCOSE NEG (NEG); URINE KETONE NEG (NEG); URINE LEUKOCYTE ESTERASE 2+ (NEG); URINE NITRATE NEG (NEG); URINE PH 8.5 (5-8); URINE PROTEIN NEG (NEG); URINE SPECIFIC GRAVITY 1.015 (1.003-1.035); URINE UROBILINOGEN 0.2 MG/DL (NEG)
[2016-12-08 14:15] LABS: CULTURE INDICATED? YES; URINE BACTERIA AUWI NEG (NEGATIVE); URINE SQUAMOUS EPITHELIAL CELL NONE SEEN /[HPF]
[2016-12-08] MEDS ORDERED: PATIENT'S PHARMACY (15:35)
[2016-12-09 05:22] LABS: HEMATOCRIT 35.3 % (35.0-45.0); HEMOGLOBIN 11.6 gm/dL (12.0-16.0); MEAN CELL VOLUME 86.9 FL (83-96); MEAN CORPUSCULAR HEMOGLOBIN 28.6 PG (28-34); MEAN CORPUSCULAR HGB CONC 32.9 g/dL (30-36); MEAN PLATELET VOLUME 7.1 FL (6.5-11.5); RED BLOOD COUNT 4.06 X10e (3.90-5.30); RED CELL DISTRIBUTION WIDTH 14.2 % (11.0-15.5); WHITE BLOOD COUNT 5.4 X10e3 (4.0-10.5)
[2016-12-09 06:25] LABS: BUN/CREATININE RATIO 21.42; CALCIUM SERUM 8.9 mg/dL (8.4-10.2); CREATININE SERUM 0.7 mg/dL (0.6-1.4); GLOM FILT RATE Estimated 84.8 mL/min (>60); POTASSIUM 4.1 mmol/L (3.5-5.1)
[2016-12-09 19:17] LABS: P2Y12 INHIB (PFAPLAVIX) 213 PRU (()); PLT FUNCTION ASPIRIN TEST -JH 494 ARU (350-500)
[2016-12-10 07:24] LABS: CHOLESTEROL 277 mg/dL (0-200); HDL CHOLESTEROL 54 mg/dL (35-95); LDL CHOLESTEROL 167 mg/dL (-130); LDL/HDL RATIO 3 RATIO (0-4); TRIGLYCERIDES 281 mg/dL (10-160)
[2016-12-10] MEDS ORDERED: LIPITOR (16:41)
[2016-12-10] MEDS ORDERED: COUMADIN5 MG PO (16:41)
[2016-12-10] MEDS ORDERED: KEFLEX500 M1 PO (16:42)
[2016-12-10] MEDS ORDERED: ACETAMINOPHEN650 M4 PO (16:48)
[2016-12-10] MEDS ORDERED: MOTION SICKNESS25 M4 PO (16:50)
== END 2016-12-10 18:11 | disposition home or self-care (01) ==
LOC: CED 12:21 → C3A PCU 15:13 → CEDOF 15:13 → C3A PCU 15:13 → CED 15:56 → CEDOF 15:56 → C3A PCU 20:08 → CEDOF 12-09 11:20 → C3A PCU 12-09 11:21
PROVIDERS: Emergency Medicine; Internal Medicine
DX: I63.9 Cerebral infarction, unspecified (principal); I10 Essential (primary) hypertension; Z86.73 Personal history of transient ischemic attack (TIA), and cerebral infarction without residual deficits; I25.10 Atherosclerotic heart disease of native coronary artery without angina pectoris; K21.9 Gastro-esophageal reflux disease without esophagitis; F41.8 Other specified anxiety disorders; I08.3 Combined rheumatic disorders of mitral, aortic and tricuspid valves; Z79.01 Long term (current) use of anticoagulants; Z79.82 Long term (current) use of aspirin; Z90.710 Acquired absence of both cervix and uterus; Z90.49 Acquired absence of other specified parts of digestive tract; Z96.652 Presence of left artificial knee joint
CPT/HCPCS: 36415; 70450; 70496; 70498; 70544; 70547; 70551; 71010; 80048; 80061; 80076; 81003; 82553; 82947; 83036; 84443; 84484; 85025; 85027; 85576; 86140; 87086; 93005; 93312; 94760; 96360; 96372; 96374; 96376; 97116; 97162; 97165; 99285; G0378; G8978-GP; G8979-GP; G8987-GO; G8988-GO; J0500; J0696; J1650; J2250; J3010; Q9967